=== PATIENT | female | born 1990 | race Caucasian/White ===

== ENCOUNTER 2021-08-07 10:00 | Emergency (ER) | payer BC, MEDICAID, SELFPAY ==
[2021-08-07 10:12] VITALS: BP 127/75; PULSE 94; RESP 16; TEMP 37.1; O2SAT 100
--- NOTE | 2021-08-07 10:36 | ED.URI ---
HPI - URI/Sore Throat General Chief Complaint: Upper Respiratory Infection Stated Complaint: sob Source: patient and RN notes reviewed Mode of arrival: ambulatory Limitations: no limitations History of Present Illness MD elicited complaint: cough and sore throat Related Data Home Medications Medication Instructions Recorded Confirmed amitriptyline 100 mg PO DAILY 08/07/21 08/07/21 Allergies Allergy/AdvReac Type Severity Reaction Status Date / Time amoxicillin Allergy Intermediate Hives / Verified 08/07/21 10:24 Red Face tramadol Allergy Intermediate Hives / Verified 08/07/21 10:24 Red Face Penicillins Allergy Mild HIVES, Verified 08/07/21 10:24 THROAT SWELLS Sulfa (Sulfonamide Allergy Mild ITCHING Verified 08/07/21 10:24 Antibiotics) Review of Systems Review of Systems: CONSTITUTIONAL: Denies malaise, chills, sweats, or fever. EYES: Denies visual changes, redness, or discharge. ENT: Reports rhinorrhea, congestion, sinus pain, otalgia and sore throat. CARDIOVASCULAR: Denies chest pain, palpitations, or edema. RESPIRATORY: Reports cough. Denies dyspnea. GASTROINTESTINAL: Denies abdominal pain, nausea, vomiting, diarrhea SKIN: Denies rash or itching. MUSCULOSKELETAL: Denies myalgia. NEUROLOGIC: Denies headache. All systems reviewed & are unremarkable except as noted in HPI and below PMFSH Comments At time of signature, agree with nursing past medical, surgical, social and family history. There is no relevant family history pertinent to the presenting complaint Exam Narrative: GENERAL: Well-appearing, well-nourished, and in no acute distress. HEAD: Normocephalic EYES: PERRLA, conjunctivae clear ENT: Nares clear, turbinates edematous and erythematous, clear discharge. Mucous membranes moist. TM pearly michaels with dull light reflex bilaterally; no tragal tenderness. Oropharynx not erythematous without lesions. Tonsils not enlarged and without exudate, no drooling, no hoarseness, no trismus, uvula midline. NECK: Supple. No lymphadenopathy CHEST: Clear to auscultation, breath sounds equal. No wheezing, rhonchi, rales, or stridor. No respiratory distress, speaks in full sentences. HEART: Regular rate and rhythm. No murmur heard. SKIN: Warm, dry, no rash. NEURO: Alert and oriented x3. PSYCH: Normal mood and affect Course Course Emergency Course: Patient is aware of diagnosis, understands and agrees to treatment plan. Anticipatory guidance given. Patient agrees to follow-up as directed and is aware of reasons to seek care at the emergency department. Portions of this record may have been created with voice recognition software Level of Care: Express Care Visit Vital Signs Vital signs: Vital Signs Temperature 98.8 F 08/07/21 10:12 Pulse Rate 94 08/07/21 10:12 Respiratory Rate 16 08/07/21 10:12 Blood Pressure 127/75 08/07/21 10:12 Pulse Oximetry 100 08/07/21 10:12 Temperature 98.8 F 08/07/21 10:12 Pulse Rate 94 08/07/21 10:12 Respiratory Rate 16 08/07/21 10:12 Blood Pressure 127/75 08/07/21 10:12 Pulse Oximetry 100 08/07/21 10:12 Reviewed. MDM - URI/Sore Throat MDM Narrative Medical decision making narrative: Differential diagnosis considered: Ching virus, strep pharyngitis, allergic rhinitis, upper respiratory tract infection, sinusitis, rhinosinusitis, nasopharyngitis. viral pharyngitis, otitis media, otitis externa, pneumonia, bronchitis, viral cough syndrome, viral syndrome, and influenza. Exam findings show no acute concerns or changes; patient is non-toxic appearing and is in no distress. Patient is appropriate for outpatient treatment and follow-up. Lab Data Attestation: I reviewed the patient's lab results. Critical Care Time Critical Care Time Critical Care Time: No Discharge Plan Discharge Clinical Impression: Bronchitis, COVID-19 virus infection Patient Disposition: Home, Self-Care Condition: Stable Instructions: Acute Bronch
== END 2021-08-07 11:10 | disposition home or self-care (01) ==
PROVIDERS: Emergency Provider Nurse Practitioner; PCP Family Medicine
DX: J40 Bronchitis, not specified as acute or chronic (principal); U07.1 COVID-19; Z90.711 Acquired absence of uterus with remaining cervical stump; F32.9 Major depressive disorder, single episode, unspecified
CPT/HCPCS: 99213; G0463

== ENCOUNTER 2022-03-15 00:29 | Day surgery (SDC) | payer OTHER, SELFPAY ==
[2022-03-09 13:58] VITALS: BMI 29.9
--- NOTE | 2022-03-09 14:26 | PC.NURSE ---
Report to the Outpatient Waiting Room, entrance under the green pavilion located off [facility], at 0600 on 03-15-22. OR Time: 0730 . - You and your visitor will be asked to self-screen and do not enter if you have any COVID symptoms. - Only one visitor and NO children visitors are allowed at this time. - The patient visitor is requested to leave or wait in car when not with patient due to restrictions. - A mask is required within the hospital. Patients may have clear liquids (water, carbonated beverages, clear teas, apple juice) until 3 hours prior to surgery with a maximum of 20 ounces. 0430 - No food from midnight until time of surgery - Infants may have breast milk until 4 hours before surgery, infant formula 6 hours prior to surgery. - Children will be allowed to drink immediately following surgery. If applicable, please bring a bottle or sippy cup to assist with drinking. Juice, water, soda, and popsicles are readily available. For infants on formula, please bring formula the day of surgery. Pacifiers are allowed. Take the following medications with a SIP of water the morning of surgery: None Medications to discontinue per physician: N/A Please no make-up, nail occitan, hairspray, perfume, deodorant, or body powder the day of surgery. No jewelry (including any body piercings) or valuables the day of surgery, leave them at home. Please take a shower or bath the night before, or the morning of, surgery with an antibacterial soap. Wear comfortable, loose fitting clothing. Children are encouraged to wear pajamas. - Jewelry must be removed prior to entering the operating room. Rings and piercings that are not removed may be cut off. - The hospital will not accept responsibility for valuables. - Please leave all valuables, including medications, at home the day of surgery. If you are going home after surgery, a licensed delivery driver/customer service must drive you home. - NO public transportation without another adult. - We recommend that an adult stay with you for 24 hours following discharge. - We also recommend that you do not drive, make important decision, drink alcoholic beverages, or take any drugs that were not prescribed by your health care provider for at least 24 hours after your discharge time. For Pediatric surgeries, we recommend two adults accompany the child home (only one inside the building at this time). Follow any additional instructions given to you from your surgeon. If you or anyone in your household have experienced Covid symptoms in the past week, please notify your surgeon or the nurse liaison at the phone number below for possible testing. Telephone instructions given to Xin Rodas and asked if any additional questions and then verbalized understanding. Patient advised to call surgeon office or pre surgery nurse liaison [phone] if any additional questions.
--- NOTE | 2022-03-10 15:11 | PM.IMHP ---
H&P: HPI History of Present Illness Date/Time: 03/10/22 15:11 Chief Complaint: the patient is a 32-year-old female who presents with right knee pain chronic and ongoing in nature. Patient denies any specific trauma or injury. A lot of the patient's pain is anterior knee pain she does have some patellofemoral irritability, patient has been treated with therapy cortisone and anti-inflammatories without significant relief. She reports aching pain squatting kneeling going up and down stairs twisting or turning on the knee causes significant symptoms as well. An MRI scan was performed that shows a lateral meniscus to be intact. The medial meniscus shows degenerative noncommunicating hyperintense signal within the body and posterior horn. Stabilizing ligaments are intact. The report is read as no significant lateral patellar subluxation there is some moderate medial compartment thinning of the articular cartilage. . Despite conservative measures symptoms continue. At times it feels tight and swollen, if she sits too long with her knee bent she has aching pain in the anterior knee. She is limited in her daily activities she has discussed further treatment options in detail Dr. Carter the patient would now like to proceed with knee arthroscopy. Review of Systems Review of Systems: Ten point review of systems otherwise negative. [facility] Social History Social History Years smoked: 6 Smoking status: Former smoker Tobacco type: cigarettes Second hand tobacco smoke exposure: Yes (spouse smokes) Smoking end date: 07/23/14 Alcohol intake: current Alcohol use details: occasionally, not often Substance use: never Substance use type: does not use Living arrangements: with family Spiritual care concerns: No Meds Home Medications and Allergies Home Medications Medication Instructions Recorded Confirmed Type amitriptyline 100 mg tablet 100 mg PO HS 08/07/21 03/09/22 History clindamycin HCl 300 mg capsule 300 mg PO Q6H 03/09/22 03/09/22 History Allergies Allergy/AdvReac Type Severity Reaction Status Date / Time amoxicillin Allergy Intermediate Hives / Verified 03/09/22 13:48 Red Face tramadol Allergy Intermediate Hives / Verified 03/09/22 13:48 Red Face Penicillins Allergy Mild HIVES, Verified 03/09/22 13:48 THROAT SWELLS Sulfa (Sulfonamide Allergy Mild ITCHING Verified 03/09/22 13:48 Antibiotics) Exam Narrative: On exam the patient is noted be well-developed well-nourished female no acute distress alert oriented x3. Normal mood and affect. Patient is 5 ft 5 in tall 180 lb. BMI is 30. Hearing and vision are intact. Respiratory is good no distress. Pulse regular rate, rhythm. Abdomen benign. Extremities showed the patient's right knee to be painful with manipulation range of motion. She has a positive patellofemoral compression test mild subpatellar crepitation through the arc of motion. Patient has pain and tenderness on the medial joint line posterior medially. No evidence of a Harding cyst no significant effusion or swelling. Range of motion is well maintained has pain with extremes of motion. Ann maneuver is positive with significant reproduction of posterior old medial knee pain. Negative Karl no varus or valgus instability. Strength is 5 5 knee joint is otherwise stable neurovascularly she is intact. Skin is intact. Central nervous system within normal limits. Assessment and Plan Assessment and plan (1) Tear of medial meniscus of right knee: Code(s): S83.241A - Other tear of medial meniscus, current injury, right knee, initial encounter Status: Acute (2) Patellofemoral pain syndrome of right knee: Code(s): M22.2X1 - Patellofemoral disorders, right knee Status: Acute Plan By history and exam the patient is noted to have a likely medial meniscal tear of the right knee and patell
--- NOTE | 2022-03-14 11:57 | P.PNAN_ITS ---
Anes - Initial Pre Proc Eval Procedure: Operation Date: 03/15/22 09:00 Proposed Procedures p Right Knee Arthroscopy, Debridement, Possible Lateral Retinacular Release, Proceed as Indicated - Edwin Carter MD Date/Time: 03/14/22 11:57 Surgeon: Edwin Carter MD Pre Op Diagnosis: patellofemoral pain, internal derangement rt knee Patient Data Age: 32 Gender: F Height: 1.65 m Weight: 81.65 kg Allergies Allergy/AdvReac Type Severity Reaction Status Date / Time amoxicillin Allergy Intermediate Hives / Verified 03/15/22 07:14 Red Face tramadol Allergy Intermediate Hives / Verified 03/15/22 07:14 Red Face Penicillins Allergy Mild HIVES, Verified 03/15/22 07:14 THROAT SWELLS Sulfa (Sulfonamide Allergy Mild ITCHING Verified 03/15/22 07:14 Antibiotics) Home Medications Medication Instructions Recorded Confirmed Type amitriptyline 100 mg tablet 100 mg PO HS 08/07/21 03/15/22 History Patient hx anesthesia problems: none Family hx anesthesia problems: none Results Review: All pre-operative results and documents have been reviewed as part of the pre- operative evaluation. [facility] Past Medical History Medical History (Updated 03/14/22 @ 11:59 by Kain Linder MD) Anxiety Bipolar 1 disorder Depression PONV (postoperative nausea and vomiting) Social History Social History Years smoked: 6 Smoking status: Former smoker Tobacco type: cigarettes Second hand tobacco smoke exposure: Yes (spouse smokes) Smoking end date: 07/23/14 Alcohol intake: current Alcohol use details: occasionally, not often Substance use: never Substance use type: does not use Living arrangements: with family Spiritual care concerns: No Anes - Eval Final PreProcedure Day of Procedure 03/14/22 11:57 Patient weight: overweight Heart: regular rate and rhythm Lungs: clear to auscultation and normal air movement Airway: Mallampati scale class II Neurological: alert and oriented Last oral intake: >/= 8 hours ASA classification: II Emergent: no Anesthetic plan: proceed Anesthesia type and monitoring: general LMA Results Review: All pre-operative results and documents have been reviewed as part of the pre- operative evaluation. Informed Consent: The patient's anesthetic plan and its attendant risks and benefits were discussed with the patient/family/POA. Questions were solicited and answers provided to the satisfaction of the patient/family/POA.
[2022-03-15] VITALS (9 sets, daily range): BP systolic 111–122; BP diastolic 64–79; PULSE 79–101; RESP 12–22; TEMP 36.3–36.4; O2SAT 97–100
--- NOTE | 2022-03-15 07:11 | WPDHPUPDATE1 ---
History and Physical Update Update Date/Time: 03/15/22 07:11 History and Physical has been reviewed, including an updated exam of the patient. There are NO changes in the patient's condition. Risks, benefits, and alternatives have been discussed and questions answered. Patient agrees to proceed with procedure.
[2022-03-15] MEDS: LACTATED RINGERS 1,000 ML 30 ML IV CONT (07:41)
[2022-03-15] MEDS: ACETAMINOPHEN 500 MG TABLET 1000 MG PO (07:41)
[2022-03-15] MEDS: KETOROLAC 15 MG/ML VIAL (*BKC) IV PUSH (07:43)
[2022-03-15] MEDS: SCOPOLAMINE 1.5 MG PATCH TRANSDERM (08:10)
[2022-03-15] MEDS: ceFAZolin 2 GM/D5W 50 ML 2 GM/50 ML BAG IVPB (08:37)
[2022-03-15] MEDS: LIDO 1%/EPINEPHRINE 1:100,000 50 ML VIAL 30 ML INFILTRATE (09:04)
--- NOTE | 2022-03-15 09:25 | P.OP_ITS ---
Procedure Note - Detailed Date of Procedure 03/15/22 Pre-op Diagnosis patellofemoral pain, internal derangement rt knee Post-op Diagnosis Same Procedure Performed Arthroscopy partial medial meniscectomy lateral retinacular release Surgeon Edwin Carter MD Anesthesia General Description of Procedure Patient brought to the operating room and anesthetic was administered. The knee was steriley prepped and drapped in the usual manner. Standard portals were used. Superior medial portal was used for the outflow cannula, inferior lateral portal was used for the scope, inferior medial portal was used for the instruments. Arthroscopy was performed, the patellar femoral joint showed degenerative changes and significant patellar tilt laterally. The medial compartment showed small fraying and tearing, with significant chondromalacia medial femoral. The lateral compartment showed fraying. The ACL was intact. Using baskets and madelin the meniscal tear was trimmed back to a stable base so the nothing further could be pulled into the joint. Any loose or delaminated fragments were gently trimmed to a stable base. I then addressed the lateral tilted patella she rode laterally both the flexion extension accessory portal made lateral 15 blade was introduced and cut proximally and distally at this po int I did note fell least 60? patella seemed to track position. At this point the instruments were withdrawn, sutures placed and patient left the operating room in satisfactory condition. Estimated Blood Loss 20 Drains No Packing No Pathology None sent Complications No immediate complications Condition Stable Disposition PACU
[2022-03-15] MEDS: fentaNYL CITRATE INJ (*CRX) 100 MCG/2 ML VIAL 25 MCG IV PUSH ×4 (09:53→10:00)
[2022-03-15] MEDS: ONDANSETRON INJ 4 MG/2 ML VIAL IV PUSH (10:22)
[2022-03-15] MEDS: oxyCODONE HCL (*CRX) 5 MG TAB IR PO (11:07)
--- NOTE | 2022-03-15 11:13 | SUR.PHASEII ---
DR. WATERMAN CALLED TO ASK HIM WHAT THE PATIENT'S ACTIVITY LEVEL SHOULD BE POST-OPERATIVELY. HE INSTRUCTED WEIGHT-BEARING TOLERATED. MY USE CRUTCHES NEEDED.
--- NOTE | 2022-03-15 11:23 | SUR.PHASEII ---
CRUTCHES ORDERED; GIVEN TO PATIENT. PATIENT STATES SHE KNOWS HOW TO USE THEM.
== END 2022-03-15 11:52 | disposition home or self-care (01) ==
PROVIDERS: PCP Family Medicine; Visit Provider Orthopaedic Surgery
PROC: (CPT 29870; principal; 2022-03-15 09:00)
DX: S83.241A Other tear of medial meniscus, current injury, right knee, initial encounter (principal); M22.2X1 Patellofemoral disorders, right knee; M22.41 Chondromalacia patellae, right knee; M25.561 Pain in right knee; G89.29 Other chronic pain; Z87.891 Personal history of nicotine dependence
CPT/HCPCS: 29881; 29873; A9270; J0690; J1170; J1885; J2250; J2405; J2704; J3010; J7120

== ENCOUNTER 2024-06-30 13:01 | Outpatient (CLI) | payer OTHER, SELFPAY ==
--- NOTE | ~2024-06-30 | CT_ITS ---
CT abdomen pelvis w con Ordering provider: Jocelyn BaANDRES History: 34 years Female with . RLQ pain . Comparison: June 24, 2015 Technique: CT abdomen and pelvis with IV and without oral contrast. Automated exposure control and it erative reconstruction technique were employed. The dose-length product was 393.09 mGy-cm. 100 mL Omn ipaque 350 was given IV. Findings: VISUALIZED LOWER CHEST: Normal. UPPER ABDOMINAL ORGANS: Liver: Normal. Gallbladder: Contracted Spleen: Normal. Stomach/duodenum: Normal. Pancreas: Normal. Adrenals: Normal. Kidneys: Normal. PELVIC ORGANS: The bladder is normal. BOWEL AND MESENTERY: Colon: No evidence of diverticulitis. Fecal material seen in the right side of the colon. Normal appe ndix. Small Bowel: Normal. No obstruction. Peritoneum/mesentery: No free air or free fluid. No mesenteric lymphadenopathy. RETROPERITONEUM: Mild atheromatous disease of the abdominal aorta. iliac lymph nodes or may be the o varies are noted measuring 2.3 cm 1.6 cm on the left and the Right measuring 2.5 cm. Slight narrowing at the origin of the celiac artery. No retroperitoneal lymphadenopathy. MUSCULOSKELETAL: Superficial soft tissues: The superficial soft tissues are normal. Bones: Normal spine. IMPRESSION: 1. No evidence of appendicitis, diverticulitis or intestinal obstruction. 2. Constipation. Reviewed, dictated and finalized at location A. E OPERATOR
--- NOTE | ~2024-06-30 | XR_ITS ---
XR chest 2V Ordering provider: Jocelyn Ba, ANDRES History: 34 years Female with . RLQ Pain . Comparison: May 13, 2011 FINDINGS: MEDIASTINUM: The cardiac silhouette is not enlarged. LUNGS: No infiltrates, effusions or pneumothorax. OTHER: No free air under the diaphragm. IMPRESSION: No acute cardiopulmonary pathology. Reviewed, dictated and finalized at location A. UTER NETWORK ENGINEER
== END 2024-06-30 13:02 | disposition home or self-care (01) ==
PROVIDERS: PCP Physician Assistant; Visit Provider Physician Assistant
DX: K59.00 Constipation, unspecified (principal); R61 Generalized hyperhidrosis
CPT/HCPCS: 71046; 74177; Q9967

== ENCOUNTER 2024-07-31 15:29 | Outpatient (CLI) | payer OTHER, SELFPAY ==
--- NOTE | ~2024-07-31 | US_ITS ---
EXAMINATION: US pelvic complete w TV INDICATION: Right-sided pelvic pain and swelling Comparison:No prior studies for comparison. TECHNIQUE: Multiple transabdominal and endovaginal sonographic images of the pelvis performed. FINDINGS: The uterus is surgically absent. The left ovary is not visualized. The right ovary is unremarkable measuring 2.1 x 1.5 x 1.8 cm. There is normal Doppler signal in the r ight ovary with follicular changes. There is no free fluid in the pelvis. There are no abnormal masses seen on either side. IMPRESSION: 1. Unremarkable pelvic ultrasound status post hysterectomy. Reviewed, dictated and finalized at location B. TMENT COORDINATOR
== END 2024-07-31 15:30 | disposition home or self-care (01) ==
LOC: ANHIMG 15:31
PROVIDERS: PCP Physician Assistant; Visit Provider Physician Assistant
DX: R19.09 Other intra-abdominal and pelvic swelling, mass and lump (principal); Z90.710 Acquired absence of both cervix and uterus
CPT/HCPCS: 76830; 76856

== ENCOUNTER 2024-09-07 15:59 | Emergency (ER) | payer OTHER, SELFPAY ==
[2024-09-07 16:07] VITALS: BP 126/75; PULSE 82; RESP 16; TEMP 36.7; O2SAT 99
[2024-09-07] MEDS: TETANUS,DIPHTHERIA,AC PERTUSSIS ADULT (0.5 ML) BOOSTRIX IM (16:35)
--- NOTE | 2024-09-07 16:39 | ED.WOUNDLAC ---
HPI - Wound/Laceration General Chief Complaint: Wound/Laceration Stated Complaint: Left Hand Laceration Time Seen by Provider: 09/07/24 16:40 Source: patient and RN notes reviewed Mode of arrival: ambulatory Limitations: no limitations History of Present Illness HPI narrative: 34-year-old female presents concern for laceration to her left and. Reports she was washing dishes when she lacerated the hand. She reports she is not up-to-date on her tetanus vaccination. She denies decreased strength, sensation, range of motion of the digit Related Data Home Medications ?Medication ?Instructions ?Recorded ?Confirmed ?Last Taken ?Type No Home Medications 09/07/24 09/07/24 Unknown History Allergies Allergy/AdvReac Type Severity Reaction Status Date / Time amoxicillin Allergy Intermediate Hives / Verified 10/30/23 14:14 Red Face tramadol Allergy Intermediate Hives / Verified 10/30/23 14:14 Red Face Penicillins Allergy Mild HIVES, Verified 10/30/23 14:14 THROAT SWELLS Sulfa (Sulfonamide Allergy Mild ITCHING Verified 10/30/23 14:14 Antibiotics) Review of Systems Review of Systems: CONSTITUTIONAL: Denies malaise, chills, sweats, or fever. SKIN: Reports laceration to the left hand MUSCULOSKELETAL: Denies muscle skeletal pain NEUROLOGIC: Denies numbness, weakness All systems reviewed & are unremarkable except as noted in HPI and below PMFSH Past Medical History Medical History Anxiety Bipolar 1 disorder Depression PONV (postoperative nausea and vomiting) Vaginal discharge Surgical History Surgical History H/O LEEP H/O ovarian cystectomy x 2 H/O tubal ligation H/O: hysterectomy Hx of knee surgery Family History Family History Mother Hypertension Father Diabetes mellitus Social History Social History Years smoked: 6 Smoking status: Former smoker Tobacco type: cigarettes Second hand tobacco smoke exposure: Yes (spouse smokes) Smoking end date: 07/23/14 Alcohol intake: current Alcohol use details: occasionally, not often Substance use: never Substance use type: does not use Living arrangements: with family Occupation/Education: occupation Gender identity (if verbalized by the patient): Female Sexual Orientation (if Verbalized by the Patient): Straight or Heterosexual Spiritual care concerns: No Comments At time of signature, agree with nursing past medical, surgical, social and family history. There is no relevant family history pertinent to the presenting complaint Exam Narrative: GENERAL: Well-appearing, well-nourished, and in no acute distress. HEAD: Normocephalic EYES: PERRLA, conjunctivae clear NECK: Supple. CHEST: Speaks in full sentences. No respiratory distress. HEART: Regular rate and rhythm. Normal and equal peripheral pulses. EXTREMITIES: Left hand and digits of hand have normal strength and sensation. 5/5 strength with digit flexion, extension. Range of motion normal. No clubbing, cyanosis, or edema noted. Normal digital cascade with flexion of fingers, median, ulnar and radial nerve intact. Good capillary refill and radial pulse. Distal capillary refill less than 3 seconds. Patient is left hand dominant SKIN: Warn, dry, intact, pink. No rash. Laceration noted to the dorsal aspect of the left hand NEURO: Alert and oriented x3. PSYCH: Normal mood and affect Extrem: Hand/finger images:  1. 1.5 cm linear laceration through the subcutaneous tissue. Not gaping, no active bleeding, edges well-approximated Course Course Emergency Course: Patient is aware of diagnosis, understands and agrees to treatment plan. Anticipatory guidance given. Patient agrees to follow-up as directed and is aware of reasons to seek care at the emergency department. Portions of this record may have been created with voice recognition software Level of Care: Express Care Visit Vital Signs Vital signs: Vital Signs Temperature 98.0 F 09/07/24 16:07 Pulse Rate 82 09/07/24 16:07 Respiratory Rate 16 09/07/24 16:07 Blood Pressure 126/75 09/07/24 16:07 Pulse Oximetry 99 09/07/24 16:07 Oxygen Delivery Room Air 09/07/24 16:07 Temperature 98.0 F 09/07/24 16:07 Pulse Rate 82 09/07/24 16:07 Respiratory Rate 16 09/07/24 16:07 Blood Pressure 126/75 09/07/24 16:07 Pulse Oximetry 99 09/07/24 16:07 Oxygen Delivery Room Air 09/07/24 16:07 Reviewed. Procedures Laceration Laceration 1: Date: 09/07/24 Time: 16:45 Side (If applicable): left Size (cm): 1.5 Description: linear Depth: simple, single layer Pre-repair: wound explored and irrigated ====== Skin Level ====== Skin layer closed with: dermabond ====== Subcutaneous Layer ====== ====== Muscle Layer ====== ====== Tendon Layer ====== MDM - Wound/Laceration MDM Narrative Medical decision making narrative: Wound explored for foreign body and copious irrigation provided with no evidence of FB. The wound was explored and no foreign bodies were found. There was no evidence of tendon or nerve lacerations. Anticipatory guidance was provided. Tetanus prophylaxis was given Differential Diagnosis Differential diagnosis: Likely laceration, abrasion and avulsion of skin Critical Care Time Critical Care Time Critical Care Time: No Discharge Plan Discharge Clinical Impression: Laceration Patient Disposition: Home, Self-Care Condition: Stable Instructions: Laceration (ED) Additional Instructions: Skin adhesive care: -adhesive works like a bandage; do not use antibiotic ointment as it can break down the adhesive -You can shower while the adhesive is on your skin, but do not take a bath or soak or scrub the area for 7-10 days. Dry your skin by patting it gently with a towel. -The adhesive will peel off on its own; usually by 5-10days. If after 10 days, you still have adhesive on you, you can use antibiotic ointment or petroleum jelly to get it off. After you heal, you should protect the scar from the sun. Use sunscreen on the area or wear clothes or a hat that covers the scar. Follow up with your PCP as needed If you have any worsening of symptoms, redness, swelling, fever, or drainage, or any other concerns please follow up with your PCP or go to the ED immediately. Patient Language: [place] Prescriptions: No Action No Home Medications Follow-up/Referrals: Jesenia,ANDRES Banks [Primary Care Provider] - Time of Disposition: 16:57
== END 2024-09-07 17:25 | disposition home or self-care (01) ==
PROVIDERS: Emergency Provider Nurse Practitioner; PCP Physician Assistant
DX: S61.412A Laceration without foreign body of left hand, initial encounter (principal); X58.XXXA Exposure to other specified factors, initial encounter; Y93.G1 Activity, food preparation and clean up; Z23 Encounter for immunization; Z87.891 Personal history of nicotine dependence
CPT/HCPCS: 12001; 90471; 90715; 99212; G0463

== ENCOUNTER 2025-06-15 06:36 | Outpatient (CLI) | payer BC, SELFPAY ==
--- OUTSIDE RECORDS SUMMARY | 2025-06-15 06:41 | XMS_ITS | Clinical Summary ---
Author Organization [facility] Address [address] [place] [id number] Care Team Providers Care Webbing [employer] Name Role Phone Unavailable Primary Care Provider Unavailabl e Social History Tobacco Use Types Packs/Day Years Used Date Smoking Tobacco: Never Assessed Comments Unknown Sex and Gender Information Value Date Recorded Sex Assigned at Not on file Legal Sex Female 8:32 PM CDT Gender Identity Not on file Sexual Orientation Not on file Last Filed Vital Signs Vital Sign Reading Time Taken Comments Blood Pressure 108/58 10/19/2016 12:58 PM CDT Pulse 92 10/19/2016 12:58 PM CDT Temperature - - Respiratory Rate - - Oxygen Saturation - - Inhaled Oxygen Concentration - - Weight 65.8 kg (145 lb) 10/19/2016 12:58 PM CDT Height 165.1 cm (5' 5) 10/19/2016 12:58 PM CDT Body Mass Index 24.13 10/19/2016 12:58 PM CDT Plan of Treatment Health Maintenance Due Date Last Done Comments Cervical Cancer Screening Pa p Smear (Age 30 to 64) Every 3 Years 1990 Annual Physical 1993 Hepatitis C 02/13/2008 DTaP, Tdap and Td Vaccines ( 1 - Tdap) 2009 Hepatitis B Vaccines (1 of 3 - 19+ 3-dose series) 2009 HPV Vaccines (1 - 3-dose SCD M series) 2017 Cervical Cancer Screening Pa p with HPV Testing (Age 30 to 64) Every 5 Years 02/13/2020 Cervical Cancer Screening with HPV 02/13/2020 COVID-19 Vaccine (2024-2 6 season) 2025 Influenza Adult (#1) 2025 Hepatitis A Vaccines Aged Out No long er eligible based on patient's age to complete this topic Meningococcal B Vaccine Aged Out No l onger eligible based on patient's age to complete this topic Meningococcal Vaccine Aged Out No mely armani eligible based on patient's age to complete this topic Pneumococcal Vaccine: Pediat rics (0 to 5 Years) and At-Risk Patients (6 to 49 Years) Aged Out No longer eligible b ased on patient's age to complete this topic RSV Immunizations Under 20 Months Aged Out No longer eligible based on patient's age to complete this topic
--- OUTSIDE RECORDS SUMMARY | 2025-06-15 06:41 | XMS_ITS | Data Portability ---
Author Organization Jaime FLORES Address [address] [facility] [place] [address] Care Team Providers Care Mixing Supervisor Name Role Phone REBECCAEMANUEL NETTA Primary Care Provider Unavailab le Assessment No assessment recorded. Plan of Treatment Reminders Order Date Submit Date Provider Last Modified By Organization Details Last Modified Time Details Appointments None recorded. Lab ferritin, serum or plasma 2023 024 FABIAN BERNSTEIN, [facility], [facility] [address], [place], [address], 4 07:09:24 magnesium, serum or plasma 2023 024 FABIAN BERNSTEIN, [facility], [address], [place], [address], 4 07:09:22 iron + total iron-bindin g capacity (TIBC), serum 2023 024 FABIAN BERNSTEIN, [address] [place] [address], [address], [place], [address], 4 07:09:20 CMP, serum or plasma 2023 024 [facility], [address], [place], [address], 4 07:09:18 cobalamin and folate panel, serum 2023 024 FABIAN BERNSTEIN Jessica Verma, [address], [place], [address], 4 07:09:19 lipid panel, serum 2023 024 FABIAN ENGLANDRP, Jessica Verma, [address], [place], [address], 4 07:09:16 CBC w/ auto diff 2023 024 FABIAN ENGLANDRP, Jessica Verma, [address], [place], [address], 4 07:09:25 TSH + free T4, serum 2023 024 FABIAN BERNSTEIN, Jessica Verma, [address], [place], [address], 4 07:09:17 lh + FSH, serum 2023 024 FABIAN BERNSTEIN, Jessica Verma, [address], [place], [address], 4 07:09:26 estradiol, serum 2023 024 FABIAN BERNSTEIN, Jessica Verma, [address], [place], [address], 4 07:09:23 progesteron e, serum 2023 024 FABIAN BERNSTEIN, Jessica Verma, [address], [place], [address], 4 07:09:22 HbA1c (hemoglobin A1c), blood 2023 024 FABIAN BERNSTEIN, Jessica Verma, [address], [place], [address], 07:09:21 Referral None recorded. Procedures None recorded. Surgeries None recorded. Imaging CT, abdomen + pelvis, w/ contrast - Hold and call 2023 024 [facility] (Imaging), [address] [place] [address], [address], 15:34:14 XR, chest, 2 view [address] (Imaging), [address] [place] [address] [address], [place], [address], 11:08:51 Medication Orders ropinirole 0.5 mg tablet 2023 024 [facility] #[id number], [address], [place], [address], 12:49:58 Patient TargetsNo targets recorded. Patient Instructions Encounter Date Encounter Id Patient Instructions Last Modified By Organization Details Last Modified Time 06/30/2024 [id number] A healthy lifestyle: care instructions [email or web address] Not available 06/30/2024 12:49:55 Reason for Referral None Reported. Results Created Date Observation Date Name Description Value Unit Range Abnormal Flag Note LastModifiedBy Organization Detail LastModifiedTime 07/02/2007/03/2024 LIPID PANEL W/ CHOL/ HDL RATIO cholesterol, total 177 mg/dL 100-19 9 Not Available [facility] ([facility]) [address] [facility], [place], [address], 07/03/2024 07:09:16 07/02/20 24 07/03/2024 LIPID PANEL W/ CHOL/ HDL RATIO triglyceride s 52 mg/dL 0-149 Not Available [facility] ([facility]) [address] [facility], [place], [address], 07/03/2024 07:09:16 07/02/20 24 07/03/2024 LIPID PANEL W/ CHOL/ HDL RATIO HDL cholesterol 55 mg/dL >39 Not Available [facility] ([facility]) [address] [place], [address], 07/03/2024 07:09:16 07/02/20 24 07/03/2024 LIPID PANEL W/ CHOL/ HDL RATIO VLDL cholesterol daniel 10 mg/dL 5-40 Not Available [facility] ([facility]) [address] [facility] [place], [address], 07/03/2024 07:09:16 07/02/20 24 07/03/2024 LIPID PANEL W/ CHOL/ HDL RATIO LDL chol calc ([facility]) 112 mg/dL 0-99 above high normal Not Available [facility] ([facility]) [address] [place], [address], 07/03/2024 07:09:16 07/02/20 24 07/03/2024 LIPID PANEL W/ CHOL/ HDL RATIO T. chol/HDL ratio 3.2 ratio 0.0-4. 4 T. Chol/ HDL Ratio Men Women 1/2 Avg.R isk 3.4 3.3 Avg.R isk 5.0 4.4 2X Avg.R isk 9.6 7.1 3X Avg.R isk 23.4 11.0 Not Available [facility] ([facility]) [address] [place], [address], 07/03/2024 07:09:16 07/02/20 24 07/03/2024 TSH+F REE T4 TSH 1.460 uIU/m L 0.450- 4.500 Not Available [facility] ([facility]) [address] [place], [address], 07/03/2024 07:09:17 07/02/20 24 07/03/2024 TSH+F REE T4 T4,free(dire ct) 1.09 NG/dL 0.82-1 .77 Not Available [facility] ([facility]) [address] [place], [address], 07/03/2024 07:09:17 07/02/20 24 07/03/2024 COMP. METAB OLIC PANEL (14) glucose 98 mg/dL 70-99 Not Available [facility] ([facility]) [address] [place], [address], 07/03/2024 07:09:18 07/02/20 24 07/03/2024 COMP. METAB OLIC PANEL (14) BUN 18 mg/dL 6-20 Not Available [facility] ([facility]) [address] [facility], [place], [address], 07/03/2024 07:09:18 07/02/20 24 07/03/2024 COMP. METAB OLIC PANEL (14) creatinine 0.86 mg/dL 0.57-1 .00 Not Available [facility] ([facility]) [address] [place], [address], 07/03/2024 07:09:18 07/02/20 24 07/03/2024 COMP. METAB OLIC PANEL (14) eGFR 91 mL/mi n/1.7 3 >59 Not Available [facility] ([facility]) [address] [place], [address], 07/03/2024 07:09:18 07/02/20 24 07/03/2024 COMP. METAB OLIC PANEL (14) BUN/creatini ne ratio 21 9-23 Not Available [facility] ([facility]) [address] [place], [address], 07/03/2024 07:09:18 07/02/20 24 07/03/2024 COMP. METAB OLIC PANEL (14) sodium 139 mmol/ L 134-14 4 Not Available [facility] ([facility]) [address] [place], [address], 07/03/2024 07:09:18 07/02/20 24 07/03/2024 COMP. METAB OLIC PANEL (14) potassium 4.7 mmol/ L 3.5-5. 2 Not Available [facility] ([facility]) [address] [place], [address], 07/03/2024 07:09:18 07/02/20 24 07/03/2024 COMP. METAB OLIC PANEL (14) chloride 104 mmol/ L 96-106 Not Available [facility] ([facility]) [address] [place], [address], 07/03/2024 07:09:18 07/02/20 24 07/03/2024 COMP. METAB OLIC PANEL (14) carbon dioxide, total 24 mmol/ L 20-29 Not Available [facility] ([facility]) [address] [place], [address], 07/03/2024 07:09:18 07/02/20 24 07/03/2024 COMP. METAB OLIC PANEL (14) calcium 9.2 mg/dL 8.7-10 .2 Not Available [facility] ([facility]) [address] [place], [address], 07/03/2024 07:09:18 07/02/20 24 07/03/2024 COMP. METAB OLIC PANEL (14) protein, total 6.4 g/dL 6.0-8. 5 Not Available [facility] ([facility]) [address] [place], [address], 07/03/2024 07:09:18 07/02/20 24 07/03/2024 COMP. METAB OLIC PANEL (14) albumin 4.2 g/dL 3.9-4. 9 Not Available [facility] ([facility]) [address] [place], [address], 07/03/2024 07:09:18 07/02/20 24 07/03/2024 COMP. METAB OLIC PANEL (14) globulin, total 2.2 g/dL 1.5-4. 5 Not Available [facility] ([facility]) [address] [place], [address], 07/03/2024 07:09:18 07/02/20 24 07/03/2024 COMP. METAB OLIC PANEL (14) bilirubin, total 0.3 mg/dL 0.0-1. 2 Not Available [facility] ([facility]) [address] [place], [address], 07/03/2024 07:09:18 07/02/20 24 07/03/2024 COMP. METAB OLIC PANEL (14) alkaline phosphatase 76 IU/L 44-121 Not Available [facility] ([facility]) [address] [place], [address], 07/03/2024 07:09:18 07/02/20 24 07/03/2024 COMP. METAB OLIC PANEL (14) AST (SGOT) 17 IU/L 0-40 Not Available [facility] ([facility]) [address] [facility] [place], [address], 07/03/2024 07:09:18 07/02/20 24 07/03/2024 COMP. METAB OLIC PANEL (14) ALT (SGPT) 13 IU/L 0-32 Not Available [facility] ([facility]) [address] [facility] [place], [address], 07/03/2024 07:09:18 07/02/20 24 07/03/2024 VITAM IN B12 AND FOLAT E vitamin B12 413 pg/mL 232-12 45 Not Available [facility] ([facility]) [address] [facility] [place], [address], 07/03/2024 07:09:19 07/02/20 24 07/03/2024 VITAM IN B12 AND FOLAT E folate (folic acid), serum 9.1 NG/mL >3.0 A serum folat e kathryn ntrat ion of less than 3.1 ng/mL is consi dered to repre sent clini daniel defic iency . Not Available [facility] ([facility]) [address] [place], [address], 07/03/2024 07:09:19 07/02/20 24 07/03/2024 IRON AND TIBC iron bind.cap.(TI BC) 344 ug/dL 250-45 0 Not Available [facility] ([facility]) [address] [place], [address], 07/03/2024 07:09:20 07/02/20 24 07/03/2024 IRON AND TIBC UIBC 283 ug/dL 131-42 5 Not Available [facility] ([facility]) [address] [place], [address], 07/03/2024 07:09:20 07/02/20 24 07/03/2024 IRON AND TIBC iron 61 ug/dL 27-159 Not Available [facility] ([facility]) [address] [facility], [place], [address], 07/03/2024 07:09:20 07/02/20 24 07/03/2024 IRON AND TIBC iron saturation 18 % 15-55 Not Available [facility] ([facility]) [address] [place], [address], 07/03/2024 07:09:20 07/02/20 24 07/03/2024 HEMOG LOBIN A1C hemoglobin A1C 5.4 % 4.8-5. 6 Predi abete s: 5.7 - 6.4 Diabe ehsan: >6.4 Glyce xenia contr ol for adult s with diabe ehsan: <7.0 Not Available [facility] ([facility]) [address] [place], [address], 07/03/2024 07:09:21 07/02/20 24 07/03/2024 MAGNE SIUM magnesium 1.9 mg/dL 1.6-2. 3 Not Available [facility] ([facility]) [address] [place], [address], 07/03/2024 07:09:21 07/02/20 24 07/03/2024 PROGE STERO NE progesterone 0.2 NG/mL Folli cular phase 0.1 - 0.9 Lutea l phase 1.8 - 23.9 Ovula tion phase 0.1 - 12.0 Pregn ant First trime ster 11.0 - 44.3 Secon d trime ster 25.4 - 83.3 Third trime ster 58.7 - 214.0 Postm enopa usal 0.0 - 0.1 Not Available [facility] ([facility]) [address] [place], [address], 07/03/2024 07:09:22 07/02/20 24 07/03/2024 ESTRA DIOL estradiol 91.9 pg/mL Adult Femal e Range Folli cular phase 12.5 - 166.0 Ovula tion phase 85.8 - 498.0 Lutea l phase 43.8 - 211.0 Postm enopa usal <6.0 - 54.7 Pregn phan 1st trime ster 215.0 - >4300 .0 Anibal ECLIA metho dolog y Not Available [facility] ([facility]) [address] [place], [address], 07/03/2024 07:09:23 07/02/20 24 07/03/2024 SRAVANI TIN ferritin 99 NG/mL 15-150 Not Available [facility] ([facility]) [address] [place], [address], 07/03/2024 07:09:24 07/02/20 24 07/02/2024 CBC WITH DIFFE RENTI AL/PL ATELE T WBC 5.1 x10e3 /uL 3.4-10 .8 Not Available [facility] ([facility]) [address] [place], [address], 07/03/2024 07:09:25 07/02/20 24 07/02/2024 CBC WITH DIFFE RENTI AL/PL ATELE T RBC 5.00 x10e6 /uL 3.77-5 .28 Not Available [facility] ([facility]) [address] [facility], [place], [address], 07/03/2024 07:09:25 07/02/20 24 07/02/2024 CBC WITH DIFFE RENTI AL/PL ATELE T hemoglobin 14.3 g/dL 11.1-1 5.9 Not Available [facility] ([facility]) [address] [facility], [place], [address], 07/03/2024 07:09:25 07/02/20 24 07/02/2024 CBC WITH DIFFE RENTI AL/PL ATELE T hematocrit 43.4 % 34.0-4 6.6 Not Available [facility] ([facility]) [address] [facility], [place], [address], 07/03/2024 07:09:25 07/02/20 24 07/02/2024 CBC WITH DIFFE RENTI AL/PL ATELE T MCV 87 fL 79-97 Not Available [facility] ([facility]) [address] [facility], [place], [address], 07/03/2024 07:09:25 07/02/20 24 07/02/2024 CBC WITH DIFFE RENTI AL/PL ATELE T MCH 28.6 pg 26.6-3 3.0 Not Available [facility] ([facility]) [address] [facility], [place], [address], 07/03/2024 07:09:25 07/02/20 24 07/02/2024 CBC WITH DIFFE RENTI AL/PL ATELE T MCHC 32.9 g/dL 31.5-3 5.7 Not Available [facility] ([facility]) [address] [facility], [place], [address], 07/03/2024 07:09:25 07/02/20 24 07/02/2024 CBC WITH DIFFE RENTI AL/PL ATELE T RDW 12.5 % 11.7-1 5.4 Not Available [facility] ([facility]) [address] [facility], [place], [address], 07/03/2024 07:09:25 07/02/20 24 07/02/2024 CBC WITH DIFFE RENTI AL/PL ATELE T platelets 272 x10e3 /uL 150-45 0 Not Available [facility] ([facility]) [address] [facility], [place], [address], 07/03/2024 07:09:25 07/02/20 24 07/02/2024 CBC WITH DIFFE RENTI AL/PL ATELE T neutrophils 62 % notest ab. Not Available [facility] ([facility]) [address] [facility], [place], [address], 07/03/2024 07:09:25 07/02/20 24 07/02/2024 CBC WITH DIFFE RENTI AL/PL ATELE T lymphs 27 % notest ab. Not Available [facility] ([facility]) [address] [facility], [place], [address], 07/03/2024 07:09:25 07/02/20 24 07/02/2024 CBC WITH DIFFE RENTI AL/PL ATELE T monocytes 7 % notest ab. Not Available [facility] ([facility]) [address] [facility], [place], [address], 07/03/2024 07:09:25 07/02/20 24 07/02/2024 CBC WITH DIFFE RENTI AL/PL ATELE T eos 3 % notest ab. Not Available [facility] ([facility]) [address] [facility], [place], [address], 07/03/2024 07:09:25 07/02/20 24 07/02/2024 CBC WITH DIFFE RENTI AL/PL ATELE T basos 1 % notest ab. Not Available [facility] ([facility]) [address] [facility], [place], [address], 07/03/2024 07:09:25 07/02/20 24 07/02/2024 CBC WITH DIFFE RENTI AL/PL ATELE T neutrophils (absolute) 3.2 x10e3 /uL 1.4-7. 0 Not Available [facility] ([facility]) [address] [facility], [place], [address], 07/03/2024 07:09:25 07/02/20 24 07/02/2024 CBC WITH DIFFE RENTI AL/PL ATELE T lymphs (absolute) 1.4 x10e3 /uL 0.7-3. 1 Not Available [facility] ([facility]) [address] [facility], [place], [address], 07/03/2024 07:09:25 07/02/20 24 07/02/2024 CBC WITH DIFFE RENTI AL/PL ATELE T monocytes(ab solute) 0.3 x10e3 /uL 0.1-0. 9 Not Available [facility] ([facility]) [address] [facility], [place], [address], 07/03/2024 07:09:25 07/02/20 24 07/02/2024 CBC WITH DIFFE RENTI AL/PL ATELE T eos (absolute) 0.1 x10e3 /uL 0.0-0. 4 Not Available [facility] ([facility]) [address] [place], [address], 07/03/2024 07:09:25 07/02/20 24 07/02/2024 CBC WITH DIFFE RENTI AL/PL ATELE T baso (absolute) 0.1 x10e3 /uL 0.0-0. 2 Not Available [facility] ([facility]) [address] [facility], [place], [address], 07/03/2024 07:09:25 07/02/20 24 07/02/2024 CBC WITH DIFFE RENTI AL/PL ATELE T immature granulocytes 0 % notest ab. Not Available [facility] ([facility]) [address] [facility], [place], [address], 07/03/2024 07:09:25 07/02/20 24 07/02/2024 CBC WITH DIFFE RENTI AL/PL ATELE T immature grans (abs) 0.0 x10e3 /uL 0.0-0. 1 Not Available [facility] ([facility]) [address] [facility], [place], [address], 07/03/2024 07:09:25 07/02/20 24 07/03/2024 FSH AND LH LH 5.9 mIU/m L Adult Femal e Range Folli cular phase 2.4 - 12.6 Ovula tion phase 14.0 - 95.6 Lutea l phase 1.0 - 11.4 Postm enopa usal 7.7 - 58.5 Not Available [facility] ([facility]) [address] [facility], [place], [address], 07/03/2024 07:09:26 07/02/20 24 07/03/2024 FSH AND LH FSH 4.1 mIU/m L Adult Femal e Range Folli cular phase 3.5 - 12.5 Ovula tion phase 4.7 - 21.5 Lutea l phase 1.7 - 7.7 Postm enopa usal 25.8 - 134.8 Not Available [facility] ([facility]) [address] [facility], [place], [address], 07/03/2024 07:09:26 06/30/20 24 06/30/2024 CT, abdom en + pelvi s, w/ contr ast No observ ation record ed. [place] [address], [place], [address], 06/30/2024 16:37:03 06/30/20 24 06/30/2024 XR, chest , 2 view No observ ation record ed. [address], [place], [address], 06/30/2024 16:37:03 07/31/19 25 07/31/2024 US, pelvi s, trans abdom inal + trans vagin al No observ ation record ed. [facility] [address], [place], [address], 08/04/2024 15:15:23 Result Notes None recorded. Problems Name Problem SNOMED Code Status Onset Date Resolution Date Notes Provider Name and Address Organization Details Recorded Time Body mass index 25-29 - overweight 076724474 Active 2023 Alex Holly MA null, [place] - [facility] 4 12:06:53 History of hysterectom y 245381857 Active 2023 KEYON Mclaughlin Attn: Accountin g,[address] [facility], [place], [address], [place] - [facility] 4 12:27:54 Overweight 196292945 Active 2023 KEYON Mclaughlin Attn: Accountin g,[address] [facility], [place], [address], [place] [facility] 4 21:58:56 Restless legs syndrome 60712970 Active 2023 KEYON Mclaughlin Attn: Accountin g,[address] [facility], [place], [address], [place] [facility] 4 21:59:01 Chronic insomnia 841176447 Active 2023 KEYON Mclaughlin Attn: Accountin g,[address] [facility], [place], [address], [place] - [facility] 4 21:59:03 Long-term drug therapy Active 2023 KEYON Mclaughlin Attn: Accountin g,[address] [facility], [place], [address], [place] - [facility] 4 21:59:06 Positive screening for depression on PHQ-9 (Patient Health Questionnai re 9) 5609729726804 00 Active 2023 KEYON Mclaughlin Attn: Rhonda webb,[address] [facility], [place], [address], [facility] 22:02:25 Problem Notes None recorded. Procedures Surgical History Date Name Laterality Status Provider Name and Address Organization Details Recorded Time Arthroscopic Surgery completed Alex Holly MA [facility] 06/30/2024 12:43:26 Knee Surgery completed Alex Holly MA [facility] 06/30/2024 12:43:31 LEEP completed Alex Holly MA [facility] 06/30/2024 12:43:40 hysterectomy completed Alex Holly MA [facility] 06/30/2024 12:43:47 excision of bilateral fallopian tubes and ovaries completed Alex Holly MA [facility] 06/30/2024 12:43:53 Imaging Results None recorded. Procedure Notes None recorded. Medical Equipment None Reported. Allergies Allergen ID Allergen Name Allergen Category Reaction Reaction Severity Criticality Documentation Date Start Date Code Code System Note Provider Name and Address Organization Details Recorded Time 358308 amoxicill in medicatio n Not available Not available Not available 06/30/2024 723 RxNorm GARETH Morrissey [facility] 12:05:20 626876 Product containin g penicilli n (product) medicatio n Not available Not available Not available 06/30/2024 96580 8001 [facility] 12:42:51 423221 Substance with sulfonami de structure and antibacte rial mechanism of action (substanc e) medicatio n Not available Not available Not available 06/30/2024 38398 8003 [facility] 12:42:57 057094 tramadol medicatio n Not available Not available Not available 06/30/2024 77996 RxNorm GARETH Morrissey [facility] 12:43:04 Medications Name Sig Start Date Stop Date Status Note LastModified by Organization Details LastModified Time doxycycline hyclate 100 mg capsule TAKE 1 CAPSULE BY MOUTH TWICE A DAY WITH MEAL active Not Available Not Available No t Available amitriptyli ne 75 mg tablet 06/30 completed Not Available Not Available Not Available fluconazole 150 mg tablet TAKE 1 TABLET BY MOUTH EVERY DAY FOR 2 DAYS active Not Available Not Available No t Available sertraline 100 mg tablet 06/30 completed Not Available Not Available Not Available metronidazo le 500 mg tablet TAKE 1 TABLET BY MOUTH EVERY 12 HOURS active Not Available Not Available No t Available doxycycline monohydrate 100 mg capsule TAKE 1 CAPSULE BY MOUTH TWICE DAILY FOR 7 DAYS THIS DRUG MAY MAKE YOU SUNBURN MORE EASILY, USE CARE IF YOU WILL BE IN THE SUN 06/30 completed Not Available Not Available Not Available ropinirole 0.5 mg tablet TAKE 1 OR 2 TABLETS BY MOUTH EVERY DAY FOR RESTLESS LEGS. 2024 active Not Available Not Available Not Avai lable methylpredn isolone 4 mg tablets in a dose pack TAKE BY MOUTH DIRECTED ON INSIDE OF PACKAGE 06/30 completed Not Available Not Available Not Available sertraline 50 mg tablet 06/30 completed Not Available Not Available Not Available neomycin-po lymyxin-hyd rocort 3.5 mg-10,000 unit/mL-1 % ear drops,susp 06/30 completed Not Available Not Available Not Available Vitals Date Recorded Systolic And Diastolic Provider Name and Address Organization Details Last Updated DateTime 06/30/2024 130/80 mm[Hg] KEYON Mclaughlin Attn: Accounting,[address] [place], [address], [facility] 06/30/2024 12:49:37 Date Recorded Body weight Respiratory rate Body mass index (BMI) Body height Oxygen saturation Heart rate Systolic And Diastolic Provider Name and Address Organization Details Last Updated DateTime 4 03704.9 3 g 18 /min 27.8 kg/m2 165.1 cm 99 % 77 /min 118/82 mm[Hg] Alex Holly MA [place] - [facility] 4 12:08:42 Social History Question Answer Notes LastModified by Organizat ion Details LastModified Time Tobacco Smoking Status Former Smoker Alex Holly MA [facility], [place] - [facility] 06/30/2024 12:44:27 Do You Have An Advance Directive? No Information not available 06/30/2024 Are You Blind Or Do You Have Difficulty Seeing? No Information not available 06/30/2024 What Is Your Level Of Caffeine Consumption? Occasional Coffee Information not available 06/30/2024 In The 14 Days Before Symptom Onset, Have You Had Close Contact With A Laboratory-confir med COVID-19 While That Case Was Ill? No Information not available 06/30/2024 In The 14 Days Before Symptom Onset, Have You Had Close Contact With A Person Who Is Under Investigation For COVID-19 While That Person Was Ill? No Information not available 06/30/2024 Have You Been To An Area Known To Be High Risk For COVID-19? No Information not available 06/30/2024 Are You Deaf Or Do You Have Serious Difficulty Hearing? No Information not available 06/30/2024 What Type Of Diet Are You Following? REGULAR Information not available 06/30/2024 Are There Any Guns Present In Your Home? No Information not available 06/30/2024 What Was The Date Of Your Most Recent Tobacco Screening? 06/30/2024 Information not available 06/30/2024 What Is Your Current Pack Years? 10-19packyears Information not available 06/30/2024 What Is Your Relationship Status? Information not available 06/30/2024 Do You Use Your Seat Belt Or Car Seat Routinely? Yes Information not available 06/30/2024 Do You Have Smoke And Carbon Monoxide Detectors In Your Home? Yes Information not available 06/30/2024 How Much Tobacco Do You Smoke? No Information not available 06/30/2024 Do You Use Sunscreen Routinely? Yes Information not available 06/30/2024 Has Tobacco Cessation Counseling Been Provided? No Information not available 06/30/2024 Sex: Female Functional Status Question Answer Note LastModified by Organizat ion Details LastModified Time Do you use any illicit or recreational drugs? No Information not available 06/30/2024 Do you or have you ever used any other forms of tobacco or nicotine? No Information not available 06/30/2024 What is your level of alcohol consumption? Occasional Information not available 06/30/2024 Are you currently employed? No Information not available 06/30/2024 Are you able to care for yourself independently? Yes Information not available 06/30/2024 What is your exercise level? None Information not available 06/30/2024 Mental Status None recorded. Family History Relationship Description Onset Age of this Age Resolved Age Notes LastModified by Organization Details LastModified Time Father Diabetes mellitus tcarterma Not available 2023 12:44:05 Father Hypertensive disorder [email or web address] Not available 2023 12:44:11 Mother Hypercholest erolemia [email or web address] Not available 2023 12:44:16 Medical History Condition Response Coronary Artery Disease N Other N Atrial Fibrillation N High Blood Pressure N Thyroid Problems N Kidney or Bladder Problems N Depression N COPD N Blood Clots N GI Problems N Have you had a mammogram in the last yea r? N Skin Problems N Anemia N Heart Attack ([place]) N Diabetes N Anxiety Disorder Y Muscle, Joint, or Bone Problems N Seizures/Epilepsy N Have you had a colonoscopy in the last 1 0 years? N Acid Reflux (GERD) Y Cancer N Stroke N Allergies Y Asthma N Have you had a PSA blood test in the las t year? N High Cholesterol N Hepatitis N Liver Disease N Headaches N Osteoporosis N Heart Failure N Gynecological History Statement/Question Response Menses Monthly N Current Control Method Hysterectom y Obstetrics History GPAL:G 2 P 2 0 0 2 Type Value Full Term 2 Induced 0 Spontaneous 0 Premature 0 Living 2 Total 2 Past Encounters Encounter ID Performer Location Encounter Start Date Encounter Closed Date Diagnosis/Indication Diagnosis SNOMED-CT Code Diagnosis ICD10 Code Diagnosis IMO Codes Diagnosis Note [id number] Markell Salas MD [facility] Nikunj Montoya [address] [place] [address] 06/30/2024 11:39:12 06/30/2024 13:03:12 Body mass index 25-29 - overweight 874558030 Z68.27 BMI is 27.8 Overweight 259701518 E66 .3 discussed healthy diet, exercise, controllin g carbohydra ehsan and added sugars in the diet Cholesterol screening 27 7418206 Z13.220 Fasting lipids for baseline ordered Diabetes m ellitus screening 066291256 Z13.1 A1c screening ordered Long-term drug therapy 774818839 Z79.891 Routine CMP and B12 ordered Restless l egs syndrome 44390265 G25.81 Patient reports restless leg syndrome. She does have a hx of sleep study confirmed. no apnea. Screening iron studies as well a magnesium ordered and trial of Requip 0.5 mg 1-2 tablets p.o. q.h.s. Chronic insomnia 3708540 04 F51.04 We will see if the Requip helps with her insomnia which may be directly related to restless leg syndrome. Night sweats 27196487 R6 1 On review of systems today patient reports that she does have night sweats that have been present for several weeks. We will check baseline CBC, thyroid function testing, FSH, LH, estrogen and progestero ne and a baseline chest x-ray to further evaluate History of hysterectomy 743079205 Z90.711 2012. ovaries remain. Right lowe r quadrant pain 608411294 R10.31 Right lower quadrant pain noted on examinatio n today. No rebound or guarding but patient does have her appendix and adnexa present. Send for CT scan abdomen and pelvis with contrast, in light of night sweats we want to make sure that the appendix is not a smoldering type situation. Positive s creening for depression on PHQ-9 (Patient Health Questionnaire 9) [id number] 18444 Z13.31 Patient scored a 7 on screening today. There are no acute questions or concerns related to any anxiety or depression but more of a fatigue situation due to sleep disorder. Health Concerns Section Related Observation LastModified by Organization Detai ls LastModified Time None Recorded Concern Status LastModified by Organization Details LastModified Time None Recorded Advance Directives Directive N: Payers Insurance Date Sequence Insurance Name Policy Number Policy Barrera Covered Member ID Barrera Member ID Guarantor Name 07/21/2024 1 [facility] - DOS ON OR AFTER 21 (MEDICAID REPLACEMENT - HMO) Xin Rodas [id number] Xin Rodas 06/30/2024 1 [facility] (PPO) [id number] Xin Rodas [id number] Xin Rodas Notes Date Note Type Note Provider Name and Address Organization Details Recorded Time 06/30/2024 text/html Patient is here to establish with new healthcare provider. She reports she does have chronic insomnia. She also reports restless leg syndrome. She is interested in up-to-date labs. KEYON Mclaughlin Attn: Accounting,[address] [place], [address], [facility] 07/18/2024 22:02:34 OBGyn Episode No OBEpisode recorded.
--- OUTSIDE RECORDS SUMMARY | 2025-06-15 06:41 | XMS_ITS | Clinical Summary ---
Author Organization [facility] Address [address] [place] [address] Care Team Providers Care Superintendent Marine Name Role Phone Vern Smith MD Primary Care Provider Source Comments [facility],non-owned Affiliates and Associated Physician Practices is amultiple site organization consisting of ambulatory clinics and hospital sitesin [place], [place], [place] and [place]. This disclosure is being madepursuant to the Care Everywhere program and may not contain all information available regarding this patient. Last updated 18.[facility] Allergies Active Allergy Reactions Criticality Noted Date Comments Penicillins Rash Medium 04/07/2017 Sulfa Drugs Rash Medium 04/07/2017 Medications * Be aware that medications may not be up to date on this document. Alwaysverify current medications with the patient. AMITRIPTYLINE HCL PO Active Active Problems No known active problems Social History Tobacco Use Types Packs/Day Years Used Date Smoking Tobacco: Never Smokeless Tobacco: Never Comments Unknown Sex and Gender Information Value Date Recorded Sex Assigned at Not on file Legal Sex Female 2:11 PM CDT Gender Identity Not on file Sexual Orientation Not on file Last Filed Vital Signs Vital Sign Reading Time Taken Comments Blood Pressure 108/62 04/07/2017 2:17 PM CDT Pulse 91 04/07/2017 2:17 PM CDT Temperature 37.3 C (99.1 F) 04/07/2017 2:17 PM CDT Respiratory Rate 18 04/07/2017 2:17 PM CDT Oxygen Saturation 98% 04/07/2017 2:17 PM CDT Inhaled Oxygen Concentration - - Weight 68 kg (150 lb) 04/07/2017 2:17 PM CDT Height 165.1 cm (5' 5) 04/07/2017 2:17 PM CDT Body Mass Index 24.96 04/07/2017 2:17 PM CDT Plan of Treatment Health Maintenance Due Date Last Done Comments HIV SCREENING 2005 HEPATITIS C SCREENING 02/08/2008 DTAP/TDAP/TD VACCINES (1 - Tdap) 2009 HEPATITIS B VACCINE (1 of 3 - 19+ 3-dose series) 2009 PAP SMEAR 2011 HPV VACCINE (1 - 3-dose SCDM series) 2017 Cervical Cancer Screening 02/13/2020 PAP with HPV 02/13/2020 DEPRESSION SCREENING 07/23/2024 COVID-19 VACCINE (1 - 2024-2 6 season) 2025 INFLUENZA VACCINE (#1) 2025 ZOSTER VACCINE (1 of 2) 02/13/2040 HIB VACCINE Aged Out No longer eligi ble based on patient's age to complete this topic MENINGOCOCCAL (Group B) VACC INE SHARED DECISION-MAKING Aged Out No longer eligibl e based on patient's age to complete this topic MENINGOCOCCAL GROUPS A/C/Y/W VACCINE Aged Out No longer eligible b ased on patient's age to complete this topic PNEUMOCOCCAL VACCINE Aged Out No long er eligible based on patient's age to complete this topic Insurance ANTH Care Teams Superintendent Marine Relationship Specialty Start Date End Date Vern Smith MD PCP - General Family Medicine 04/07/17
--- OUTSIDE RECORDS SUMMARY | 2025-06-15 06:41 | XMS_ITS | Clinical Summary ---
Author Organization [facility] Address [address] [place] [id number] Care Team Providers Care Document Design Specialist Name Role Phone Unavailable Primary Care Provider Unavailabl e Allergies Active Allergy Reactions Criticality Noted Date Comments Amoxicillin Amoxicillin Unknown 10/30/2018 Penicillin V Potassium Unknown 10/30/2018 Penicillins Sulfa (Sulfonamide Antibiotics) Sulfa (Sulfonamide Antibiotics) Unknown 10/21 Tramadol Hcl Unknown 10/30/2018 Medications amitriptyline (ELAVIL) 75 mg tablet 75 mg daily Active clonazePAM (KlonoPIN) 0.5 mg disintegrating tablet Take 0.5 mg by mouth 2 (two) times a day as needed for seizures Active sertraline (ZOLOFT) 50 mg tablet TAKE 1 TABLET BY MOUTH EVERY DAY 30 tablet 9 Active Surgical History Surgery Date Site/Laterality Comments OVARIAN CYST REMOVAL TUBAL LIGATION CERVICAL BIOPSY W/ LOOP ELECTRODE EXCISION DILATION AND CURETTAGE OF UTERUS HYSTERECTOMY Medical History Medical History Date Comments Cancer (HCC) Restless leg syndrome Ovarian cyst Family History Medical History Relation Name Comments Diabetes Father Diabetes Paternal Grandmother Relation Name Status Comments Father Alive Maternal Grandfather Maternal Grandmother Mother Alive Paternal Grandfather Paternal Grandmother Alive Social History Tobacco Use Types Packs/Day Years Used Date Smoking Tobacco: Never Smokeless Tobacco: Never Alcohol Use Standard Drinks/Week Comments Yes 0 (1 standard drink = 0.6 oz pur e alcohol) SOCIALLY Personal Safety Answer Date Recorded Getting School Help Needed Not on file 09/05 Comments Unknown Sex and Gender Information Value Date Recorded Sex Assigned at Not on file 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
[2025-06-15 18:43] LABS: Hematocrit 44.6 % (37.0-47.0); Hemoglobin 14.7 g/dL (12.0-15.0); Mean Corpuscular HGB Conc 33.0 g/dl (32-36); Mean Corpuscular Hemoglobin 29.1 pg (26-34); Mean Corpuscular Volume 88.1 fl (80-100); Platelet Count Result 288 k/mm3 (150-375); Red Blood Count 5.06 M/mm3 (4.2-5.4); White Blood Count 5.1 K/mm3 (4.5-10.0)
[2025-06-15 18:57] LABS: Alanine Aminotransferase 16 U/L (6-35); Albumin Level 4.1 g/dL (3.5-5.1); Alkaline Phosphatase 69 U/L (38-126); Anion Gap 5 mmol/L (4-12); Aspartate Amino Transferase 64 U/L (14-36); Bilirubin,Total 0.5 mg/dL (0.2-1.3); Blood Urea Nitrogen 16 mg/dL (7-17); Calcium 8.8 mg/dL (8.4-10.2); Carbon Dioxide 26 mmol/L (22-30); Chloride 105 mmol/L (98-107); Cholesterol 168 mg/dL (0-200); Estimated Glomerular Filt Rate > 60; Glucose 93 mg/dL (65-110); Hemoglobin A1C 5.8 % (<5.7); Sodium 136 mmol/L (137-145); Total Protein 7.1 g/dL (6.3-8.2); Triglycerides 43 mg/dL (<150)
[2025-06-15 19:12] LABS: Free T4 Free Thyroxine 1.11 ng/dL (0.78-2.19); HDL Direct 53 mg/dL; Potassium 4.3 mmol/L (3.4-5.0)
[2025-06-15 19:34] LABS: Thyroid Stimulating Hormone 1.270 uIU/mL (0.465-4.680)
== END 2025-06-15 06:37 | disposition home or self-care (01) ==
PROVIDERS: PCP Nurse Practitioner Adult Health; Visit Provider Nurse Practitioner Adult Health
DX: D64.9 Anemia, unspecified (principal); R53.83 Other fatigue; R35.0 Frequency of micturition; K21.9 Gastro-esophageal reflux disease without esophagitis; E66.3 Overweight; Z68.29 Body mass index [BMI] 29.0-29.9, adult
CPT/HCPCS: 36415; 80053; 80061; 83036; 84439; 84443; 85027

== ENCOUNTER 2025-07-14 09:52 | Outpatient (CLI) | payer BC, SELFPAY ==
--- NOTE | ~2025-07-14 | CT_ITS ---
EXAMINATION:CT diagnostic chest wo con DATE: 07/14/2025 10:46 INDICATION: Dyspnea, unspecified. TECHNIQUE: Computed tomography (CT) of the chest was performed without intravenous contrast. Automated exposure control and iterative reconstruction technique were employed. The dose-length product (DLP) was 145.69 mGy-cm. COMPARISON: CT abdomen and pelvis 06/30/2024 FINDINGS: A calcified left lung nodule is consistent with old granulomatous disease. There is no pneumonia or pleural effusion. The heart size is normal. No pericardial effusion. There is mild thoracic spondylosis. IMPRESSION: 1. No etiology for the patient's symptoms. Reviewed, dictated and finalized at location [facility]
--- OUTSIDE RECORDS SUMMARY | 2025-07-14 10:21 | XMS_ITS | Data Portability ---
Author Organization Jaime FLORES Address [address] [place] [address] Care Team Providers Care Lye Peel Operator Name Role Phone REBECCAEMANUEL NETTA Primary Care Provider Unavailab le Assessment No assessment recorded. Plan of Treatment Reminders Order Date Submit Date Provider Last Modified By Organization Details Last Modified Time Details Appointments None recorded. Lab ferritin, serum or plasma 2023 024 FABIAN BERNSTEIN, [facility], [facility] [address], [place], [address], 4 07:09:24 magnesium, serum or plasma 2023 024 FABIAN BERNSTEIN, Jessica [facility], [address], [place], [address], 4 07:09:22 iron + total iron-bindin g capacity (TIBC), serum 2023 024 FBAIAN BERNSTEIN, [address] [place] [address], [address], [place], [address], 4 07:09:20 CMP, serum or plasma 2023 024 Jessica VALDEZ [facility], [address], [place], [address], 4 07:09:18 cobalamin and folate panel, serum 2023 024 FABIAN BERNSTEIN Jessica Verma, [address], [place], [address], 4 07:09:19 lipid panel, serum 2023 024 FABIAN ENGLANDRP, Jessica Verma, [address], [place], [address], 4 07:09:16 CBC w/ auto diff 2023 024 FABIAN NEGLANDRP, Jessica Verma, [address], [place], [address], 4 07:09:25 TSH + free T4, serum 2023 024 FABIAN BERNSTEIN, Jessica Verma, [address], [place], [address], 4 07:09:17 lh + FSH, serum 2023 024 FABIAN BERNSTEIN, Jessica Verma, [address], [place], [address], 4 07:09:26 estradiol, serum 2023 024 FABIAN BERNSTEIN, Jessica Verma, [address], [place], [address], 4 07:09:23 progesteron e, serum 2023 024 FABIAN BERNSTEIN, Jessica Verma, [address], [place], [address], 4 07:09:22 HbA1c (hemoglobin A1c), blood 2023 024 FABIAN BERNSTEIN, Jessica Verma, [address], [place], [address], 07:09:21 Referral None recorded. Procedures None recorded. Surgeries None recorded. Imaging CT, abdomen + pelvis, w/ contrast - Hold and call 2023 024 [facility] (Imaging), [address] [place] [address], [address], 15:34:14 XR, chest, 2 view [address] (Imaging), [address] [place] [address] [address], [place], [address], 11:08:51 Medication Orders ropinirole 0.5 mg tablet 2023 024 [facility] #[id number], [address], [place], [address], 12:49:58 Patient TargetsNo targets recorded. Patient Instructions Encounter Date Encounter Id Patient Instructions Last Modified By Organization Details Last Modified Time 06/30/2024 [id number] A healthy lifestyle: care instructions [email or web address] Not available 06/30/2024 12:49:55 Reason for Referral None Reported. Results Created Date Observation Date Name Description Value Unit Range Abnormal Flag Note LastModifiedBy Organization Detail LastModifiedTime 07/02/2007/03/2024 LIPID PANEL W/ CHOL/ HDL RATIO cholesterol, total 177 mg/dL 100-19 9 Not Available [facility] ([facility]) [address] [facility], [place], [address], 07/03/2024 07:09:16 07/02/20 24 07/03/2024 LIPID PANEL W/ CHOL/ HDL RATIO triglyceride s 52 mg/dL 0-149 Not Available [facility] ([facility]) [address] [facility], [place], [address], 07/03/2024 07:09:16 07/02/20 24 07/03/2024 LIPID PANEL W/ CHOL/ HDL RATIO HDL cholesterol 55 mg/dL >39 Not Available [facility]) [address] [place], [address], 07/03/2024 07:09:16 07/02/20 24 07/03/2024 LIPID PANEL W/ CHOL/ HDL RATIO VLDL cholesterol daniel 10 mg/dL 5-40 Not Available [facility] ([facility]) [address] [facility] [place] [place], [address], 07/03/2024 07:09:16 07/02/20 24 07/03/2024 LIPID PANEL W/ CHOL/ HDL RATIO LDL chol calc ([facility]) 112 mg/dL 0-99 above high normal Not Available [facility] ([facility]) [address] [place], [address], 07/03/2024 07:09:16 07/02/20 24 07/03/2024 LIPID PANEL W/ CHOL/ HDL RATIO T. chol/HDL ratio 3.2 ratio 0.0-4. 4 T. Chol/ HDL Ratio Men Women 1/2 Avg.R isk 3.4 3.3 Avg.R isk 5.0 4.4 2X Avg.R isk 9.6 7.1 3X Avg.R isk 23.4 11.0 Not Available [facility] ([facility]) [address] [place], [address], 07/03/2024 07:09:16 07/02/20 24 07/03/2024 TSH+F REE T4 TSH 1.460 uIU/m L 0.450- 4.500 Not Available [facility] ([facility]) [address] [place], [address], 07/03/2024 07:09:17 07/02/20 24 07/03/2024 TSH+F REE T4 T4,free(dire ct) 1.09 NG/dL 0.82-1 .77 Not Available [facility] ([facility]) [address] [place], [address], 07/03/2024 07:09:17 07/02/20 24 07/03/2024 COMP. METAB OLIC PANEL (14) glucose 98 mg/dL 70-99 Not Available [facility] ([facility]) [address] [place], [address], 07/03/2024 07:09:18 07/02/20 24 07/03/2024 COMP. METAB OLIC PANEL (14) BUN 18 mg/dL 6-20 Not Available [facility] ([facility]) [address] [facility], [place], [address], 07/03/2024 07:09:18 07/02/20 24 07/03/2024 COMP. METAB OLIC PANEL (14) creatinine 0.86 mg/dL 0.57-1 .00 Not Available [facility] ([facility]) [address] [place], [address], 07/03/2024 07:09:18 07/02/20 24 07/03/2024 COMP. METAB OLIC PANEL (14) eGFR 91 mL/mi n/1.7 3 >59 Not Available [facility] ([facility]) [address] [place], [address], 07/03/2024 07:09:18 07/02/20 24 07/03/2024 COMP. METAB OLIC PANEL (14) BUN/creatini ne ratio 21 9-23 Not Available [facility] ([facility]) [address] [place], [address], 07/03/2024 07:09:18 07/02/20 24 07/03/2024 COMP. METAB OLIC PANEL (14) sodium 139 mmol/ L 134-14 4 Not Available [facility] ([facility]) [address] [place], [address], 07/03/2024 07:09:18 07/02/20 24 07/03/2024 COMP. METAB OLIC PANEL (14) potassium 4.7 mmol/ L 3.5-5. 2 Not Available [facility] ([facility]) [address] [place], [address], 07/03/2024 07:09:18 07/02/20 24 07/03/2024 COMP. METAB OLIC PANEL (14) chloride 104 mmol/ L 96-106 Not Available [facility] ([facility]) [address] [place], [address], 07/03/2024 07:09:18 07/02/20 24 07/03/2024 COMP. METAB OLIC PANEL (14) carbon dioxide, total 24 mmol/ L 20-29 Not Available [facility] ([facility]) [address] [place], [address], 07/03/2024 07:09:18 07/02/20 24 07/03/2024 COMP. METAB OLIC PANEL (14) calcium 9.2 mg/dL 8.7-10 .2 Not Available [facility] ([facility]) [address] [place], [address], 07/03/2024 07:09:18 07/02/20 24 07/03/2024 COMP. METAB OLIC PANEL (14) protein, total 6.4 g/dL 6.0-8. 5 Not Available [facility] ([facility]) [address] [place], [address], 07/03/2024 07:09:18 07/02/20 24 07/03/2024 COMP. METAB OLIC PANEL (14) albumin 4.2 g/dL 3.9-4. 9 Not Available [facility] ([facility]) [address] [place], [address], 07/03/2024 07:09:18 07/02/20 24 07/03/2024 COMP. METAB OLIC PANEL (14) globulin, total 2.2 g/dL 1.5-4. 5 Not Available [facility] ([facility]) [address] [place], [address], 07/03/2024 07:09:18 07/02/20 24 07/03/2024 COMP. METAB OLIC PANEL (14) bilirubin, total 0.3 mg/dL 0.0-1. 2 Not Available [facility] ([facility]) [address] [place], [address], 07/03/2024 07:09:18 07/02/20 24 07/03/2024 COMP. METAB OLIC PANEL (14) alkaline phosphatase 76 IU/L 44-121 Not Available [facility]) [address] [place], [address], 07/03/2024 07:09:18 07/02/20 24 07/03/2024 COMP. METAB OLIC PANEL (14) AST (SGOT) 17 IU/L 0-40 Not Available [facility] ([facility]) [address] [facility] [place], [address], 07/03/2024 07:09:18 07/02/20 24 07/03/2024 COMP. METAB OLIC PANEL (14) ALT (SGPT) 13 IU/L 0-32 Not Available [facility] ([facility]) [address] [facility] [place], [address], 07/03/2024 07:09:18 07/02/20 24 07/03/2024 VITAM IN B12 AND FOLAT E vitamin B12 413 pg/mL 232-12 45 Not Available [facility] ([facility]) [address] [facility] [place], [address], 07/03/2024 07:09:19 07/02/20 24 07/03/2024 VITAM IN B12 AND FOLAT E folate (folic acid), serum 9.1 NG/mL >3.0 A serum folat e kathryn ntrat ion of less than 3.1 ng/mL is consi dered to repre sent clini daniel defic iency . Not Available [facility] ([facility]) [address] [place], [address], 07/03/2024 07:09:19 07/02/20 24 07/03/2024 IRON AND TIBC iron bind.cap.(TI BC) 344 ug/dL 250-45 0 Not Available [facility] ([facility]) [address] [place], [address], 07/03/2024 07:09:20 07/02/20 24 07/03/2024 IRON AND TIBC UIBC 283 ug/dL 131-42 5 Not Available [facility] ([facility]) [address] [place], [address], 07/03/2024 07:09:20 07/02/20 24 07/03/2024 IRON AND TIBC iron 61 ug/dL 27-159 Not Available [facility] ([facility]) [address] [facility], [place], [address], 07/03/2024 07:09:20 07/02/20 24 07/03/2024 IRON AND TIBC iron saturation 18 % 15-55 Not Available [facility] ([facility]) [address] [place], [address], 07/03/2024 07:09:20 07/02/20 24 07/03/2024 HEMOG LOBIN A1C hemoglobin A1C 5.4 % 4.8-5. 6 Predi abete s: 5.7 - 6.4 Diabe ehsan: >6.4 Glyce xenia contr ol for adult s with diabe ehsan: <7.0 Not Available [facility] ([facility]) [address] [place], [address], 07/03/2024 07:09:21 07/02/20 24 07/03/2024 MAGNE SIUM magnesium 1.9 mg/dL 1.6-2. 3 Not Available [facility] ([facility]) [address] [place], [address], 07/03/2024 07:09:21 07/02/20 24 07/03/2024 PROGE STERO NE progesterone 0.2 NG/mL Folli cular phase 0.1 - 0.9 Lutea l phase 1.8 - 23.9 Ovula tion phase 0.1 - 12.0 Pregn ant First trime ster 11.0 - 44.3 Secon d trime ster 25.4 - 83.3 Third trime ster 58.7 - 214.0 Postm enopa usal 0.0 - 0.1 Not Available [facility] ([facility]) [address] [place], [address], 07/03/2024 07:09:22 07/02/20 24 07/03/2024 ESTRA DIOL estradiol 91.9 pg/mL Adult Femal e Range Folli cular phase 12.5 - 166.0 Ovula tion phase 85.8 - 498.0 Lutea l phase 43.8 - 211.0 Postm enopa usal <6.0 - 54.7 Pregn phan 1st trime ster 215.0 - >4300 .0 Anibal ECLIA metho dolog y Not Available [facility] ([facility]) [address] [place], [address], 07/03/2024 07:09:23 07/02/20 24 07/03/2024 SRAVANI TIN ferritin 99 NG/mL 15-150 Not Available [facility] ([facility]) [address] [place], [address], 07/03/2024 07:09:24 07/02/20 24 07/02/2024 CBC WITH DIFFE RENTI AL/PL ATELE T WBC 5.1 x10e3 /uL 3.4-10 .8 Not Available [facility] ([facility]) [address] [place], [address], 07/03/2024 07:09:25 07/02/20 24 07/02/2024 CBC WITH DIFFE RENTI AL/PL ATELE T RBC 5.00 x10e6 /uL 3.77-5 .28 Not Available [facility] ([facility]) [address] [facility], [place], [address], 07/03/2024 07:09:25 07/02/20 24 07/02/2024 CBC WITH DIFFE RENTI AL/PL ATELE T hemoglobin 14.3 g/dL 11.1-1 5.9 Not Available [facility] ([facility]) [address] [facility], [place], [address], 07/03/2024 07:09:25 07/02/20 24 07/02/2024 CBC WITH DIFFE RENTI AL/PL ATELE T hematocrit 43.4 % 34.0-4 6.6 Not Available [facility] ([facility]) [address] [facility], [place], [address], 07/03/2024 07:09:25 07/02/20 24 07/02/2024 CBC WITH DIFFE RENTI AL/PL ATELE T MCV 87 fL 79-97 Not Available [facility] ([facility]) [address] [facility], [place], [address], 07/03/2024 07:09:25 07/02/20 24 07/02/2024 CBC WITH DIFFE RENTI AL/PL ATELE T MCH 28.6 pg 26.6-3 3.0 Not Available [facility] ([facility]) [address] [facility], [place], [address], 07/03/2024 07:09:25 07/02/20 24 07/02/2024 CBC WITH DIFFE RENTI AL/PL ATELE T MCHC 32.9 g/dL 31.5-3 5.7 Not Available [facility] ([facility]) [address] [facility], [place], [address], 07/03/2024 07:09:25 07/02/20 24 07/02/2024 CBC WITH DIFFE RENTI AL/PL ATELE T RDW 12.5 % 11.7-1 5.4 Not Available [facility] ([facility]) [address] [facility], [place], [address], 07/03/2024 07:09:25 07/02/20 24 07/02/2024 CBC WITH DIFFE RENTI AL/PL ATELE T platelets 272 x10e3 /uL 150-45 0 Not Available [facility] ([facility]) [address] [facility], [place], [address], 07/03/2024 07:09:25 07/02/20 24 07/02/2024 CBC WITH DIFFE RENTI AL/PL ATELE T neutrophils 62 % notest ab. Not Available [facility] ([facility]) [address] [facility], [place], [address], 07/03/2024 07:09:25 07/02/20 24 07/02/2024 CBC WITH DIFFE RENTI AL/PL ATELE T lymphs 27 % notest ab. Not Available [facility] ([facility]) [address] [facility], [place], [address], 07/03/2024 07:09:25 07/02/20 24 07/02/2024 CBC WITH DIFFE RENTI AL/PL ATELE T monocytes 7 % notest ab. Not Available [facility] ([facility]) [address] [facility], [place], [address], 07/03/2024 07:09:25 07/02/20 24 07/02/2024 CBC WITH DIFFE RENTI AL/PL ATELE T eos 3 % notest ab. Not Available [facility] ([facility]) [address] [facility], [place], [address], 07/03/2024 07:09:25 07/02/20 24 07/02/2024 CBC WITH DIFFE RENTI AL/PL ATELE T basos 1 % notest ab. Not Available [facility] ([facility]) [address] [facility], [place], [address], 07/03/2024 07:09:25 07/02/20 24 07/02/2024 CBC WITH DIFFE RENTI AL/PL ATELE T neutrophils (absolute) 3.2 x10e3 /uL 1.4-7. 0 Not Available [facility] ([facility]) [address] [facility], [place], [address], 07/03/2024 07:09:25 07/02/20 24 07/02/2024 CBC WITH DIFFE RENTI AL/PL ATELE T lymphs (absolute) 1.4 x10e3 /uL 0.7-3. 1 Not Available [facility] ([facility]) [address] [facility], [place], [address], 07/03/2024 07:09:25 07/02/20 24 07/02/2024 CBC WITH DIFFE RENTI AL/PL ATELE T monocytes(ab solute) 0.3 x10e3 /uL 0.1-0. 9 Not Available [facility] ([facility]) [address] [facility], [place], [address], 07/03/2024 07:09:25 07/02/20 24 07/02/2024 CBC WITH DIFFE RENTI AL/PL ATELE T eos (absolute) 0.1 x10e3 /uL 0.0-0. 4 Not Available [facility] ([facility]) [address] [place], [address], 07/03/2024 07:09:25 07/02/20 24 07/02/2024 CBC WITH DIFFE RENTI AL/PL ATELE T baso (absolute) 0.1 x10e3 /uL 0.0-0. 2 Not Available [facility] ([facility]) [address] [facility], [place], [address], 07/03/2024 07:09:25 07/02/20 24 07/02/2024 CBC WITH DIFFE RENTI AL/PL ATELE T immature granulocytes 0 % notest ab. Not Available [facility] ([facility]) [address] [facility], [place], [address], 07/03/2024 07:09:25 07/02/20 24 07/02/2024 CBC WITH DIFFE RENTI AL/PL ATELE T immature grans (abs) 0.0 x10e3 /uL 0.0-0. 1 Not Available [facility] ([facility]) [address] [facility], [place], [address], 07/03/2024 07:09:25 07/02/20 24 07/03/2024 FSH AND LH LH 5.9 mIU/m L Adult Femal e Range Folli cular phase 2.4 - 12.6 Ovula tion phase 14.0 - 95.6 Lutea l phase 1.0 - 11.4 Postm enopa usal 7.7 - 58.5 Not Available [facility] ([facility]) [address] [facility], [place], [address], 07/03/2024 07:09:26 07/02/20 24 07/03/2024 FSH AND LH FSH 4.1 mIU/m L Adult Femal e Range Folli cular phase 3.5 - 12.5 Ovula tion phase 4.7 - 21.5 Lutea l phase 1.7 - 7.7 Postm enopa usal 25.8 - 134.8 Not Available [facility] ([facility]) [address] [facility], [place], [address], 07/03/2024 07:09:26 06/30/20 24 06/30/2024 CT, abdom en + pelvi s, w/ contr ast No observ ation record ed. [place] [address], [place], [address], 06/30/2024 16:37:03 06/30/20 24 06/30/2024 XR, chest , 2 view No observ ation record ed. [address], [place], [address], 06/30/2024 16:37:03 07/31/19 25 07/31/2024 US, pelvi s, trans abdom inal + trans vagin al No observ ation record ed. [facility] [address], [place], [address], 08/04/2024 15:15:23 Result Notes None recorded. Problems Name Problem SNOMED Code Status Onset Date Resolution Date Notes Provider Name and Address Organization Details Recorded Time Body mass index 25-29 - overweight 445848225 Active 2023 Alex Holly MA null, [place] - [facility] 4 12:06:53 History of hysterectom y 848323457 Active 2023 KEYON Mclaughlin Attn: Accountin g,[address] [facility], [place], [address], [place] [facility] 4 12:27:54 Overweight 795822294 Active 2023 KEYON Mclaughlin Attn: Accountin g,[address] [facility], [place], [address], [place] [facility] 4 21:58:56 Restless legs syndrome 00063465 Active 2023 KEYON Mclaughlin Attn: Accountin g,[address] [facility], [place], [address], [place] [facility] 4 21:59:01 Chronic insomnia 906698751 Active 2023 KEOYN Mclaughlin Attn: Accountin g,[address] [facility], [place], [address], [place] [facility] 4 21:59:03 Long-term drug therapy Active 2023 KEYON Mclaughlin Attn: Accountin g,[address] [facility], [place], [address], [place] - [facility] 4 21:59:06 Positive screening for depression on PHQ-9 (Patient Health Questionnai re 9) [id number] 00 Active 2023 KEYON Mclaughlin Attn: Rhonda webb,[address] [facility], [place], [address], [facility] 22:02:25 Problem Notes None recorded. Procedures Surgical History Date Name Laterality Status Provider Name and Address Organization Details Recorded Time Arthroscopic Surgery completed Alex Holly MA [facility] 06/30/2024 12:43:26 Knee Surgery completed Alex Holly MA [facility] 06/30/2024 12:43:31 LEEP completed Alex Holly MA [facility] 06/30/2024 12:43:40 hysterectomy completed Alex Holly MA [facility] 06/30/2024 12:43:47 excision of bilateral fallopian tubes and ovaries completed Alex Holly MA [facility] 06/30/2024 12:43:53 Imaging Results None recorded. Procedure Notes None recorded. Medical Equipment None Reported. Allergies Allergen ID Allergen Name Allergen Category Reaction Reaction Severity Criticality Documentation Date Start Date Code Code System Note Provider Name and Address Organization Details Recorded Time 988934 amoxicill in medicatio n Not available Not available Not available 06/30/2024 723 RxNorm GARETH Morrissey [facility] 12:05:20 319482 Product containin g penicilli n (product) medicatio n Not available Not available Not available 06/30/2024 14439 8001 [facility] 12:42:51 225964 Substance with sulfonami de structure and antibacte rial mechanism of action (substanc e) medicatio n Not available Not available Not available 06/30/2024 01058 8003 [facility]ED [facility] 12:42:57 630492 tramadol medicatio n Not available Not available Not available 06/30/2024 16920 RxNorm GARETH Morrissey [facility] 12:43:04 Medications Name Sig Start Date Stop [...] 06/30/2024 130/80 mm[Hg] KEYON Mclaughlin Attn: Accounting,[address] [place], [address], [facility] 06/30/2024 12:49:37 Date Recorded Body weight Respiratory rate Body mass index (BMI) Body height Oxygen saturation Heart rate Systolic And Diastolic Provider Name and Address Organization Details Last Updated DateTime 4 45652.9 3 g 18 /min 27.8 kg/m2 165.1 cm 99 % 77 /min 118/82 mm[Hg] Alex Holly [place] [facility] 4 12:08:42 Social History Question Answer Notes LastModified by Organizat ion Details LastModified Time Tobacco Smoking Status Former Smoker Alex Holly MA [facility], [place] - [facility] 06/30/2024 12:44:27 Do You Have [...] Skin Problems N Anemia N Heart Attack ([place]) N Diabetes N Anxiety Disorder Y Muscle, [...] ICD10 Code Diagnosis IMO Codes Diagnosis Note [id number] Markell Salas MD [facility]unj Montoya [address] [place] [address] 06/30/2024 11:39:12 06/30/2024 13:03:12 Body mass index 25-29 - overweight 263945644 Z68.27 BMI is 27.8 Overweight 584401694 E66 .3 discussed healthy diet, exercise, controllin g carbohydra ehsan and added sugars in the diet Cholesterol screening 27 7044620 Z13.220 Fasting lipids for baseline ordered Diabetes m ellitus screening 431002899 Z13.1 A1c screening ordered Long-term drug therapy 839661803 Z79.891 Routine CMP and B12 ordered Restless l egs syndrome 46386460 G25.81 Patient reports restless leg syndrome. She does have a hx of sleep study confirmed. no apnea. Screening iron studies as well a magnesium ordered and trial of Requip 0.5 mg 1-2 tablets p.o. q.h.s. Chronic insomnia 1339629 04 F51.04 We will see if the Requip helps with her insomnia which may be directly related to restless leg syndrome. Night sweats 62285236 R6 1 On review of systems today patient reports that she does have night sweats that have been present for several weeks. We will check baseline CBC, thyroid function testing, FSH, LH, estrogen and progestero ne and a baseline chest x-ray to further evaluate History of hysterectomy 710716282 Z90.711 2012. ovaries remain. Right lowe r quadrant pain 844940258 R10.31 Right lower quadrant pain noted on examinatio n today. No rebound or guarding but patient does have her appendix and adnexa present. Send for CT scan abdomen and pelvis with contrast, in light of night sweats we want to make sure that the appendix is not a smoldering type situation. Positive s creening for depression on PHQ-9 (Patient Health Questionnaire 9) [id number] 40850 Z13.31 Patient scored a 7 on screening [...] Barrera Member ID Guarantor Name 07/21/2024 1 [facility] - DOS ON OR AFTER 21 (MEDICAID REPLACEMENT - HMO) Xin Rodas [id number] Xin Rodas 06/30/2024 1 [facility] (PPO) [id number] Xin Rodas [id number] Xin Rodas Notes Date Note Type Note Provider Name and Address Organization Details Recorded Time 06/30/2024 text/html Patient is here to establish with new healthcare provider. She reports she does have chronic insomnia. She also reports restless leg syndrome. She is interested in up-to-date labs. KEYON Mclaughlin Attn: Accounting,[address] [place], [address], [facility] 07/18/2024 22:02:34 OBGyn Episode No OBEpisode recorded.
--- OUTSIDE RECORDS SUMMARY | 2025-07-14 10:21 | XMS_ITS | Clinical Summary ---
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
--- OUTSIDE RECORDS SUMMARY | 2025-07-14 10:21 | XMS_ITS | Clinical Summary ---
Author Organization [facility] Address [address] [place] [id number] Care Team Providers Care Weapons And Tactics Instructor Name Role Phone Unavailable Primary Care Provider [...]
--- OUTSIDE RECORDS SUMMARY | 2025-07-14 10:21 | XMS_ITS | Clinical Summary ---
Author Organization [facility] Address [address] [place] [address] Care Team Providers Care Rn Progressive Care Name Role Phone Vern Smith MD Primary Care Provider [phone] Source Comments [facility],non-owned Affiliates and Associated Physician Practices is amultiple site organization consisting of ambulatory clinics and hospital sitesin [place], [place], [place] and [place]. This disclosure is being madepursuant to the Care Everywhere program and may not contain all information available regarding this patient. Last updated 18.[facility] Allergies Active Allergy Reactions Criticality Noted Date [...] 3 - 19+ 3-dose series) 2009 HPV VACCINE (1 - 3-dose SCDM series) 2017 DEPRESSION SCREENING 07/23/2024 COVID-19 VACCINE (1 - [...] patient's age to complete this topic Insurance ANTHEM Care Teams Rn Progressive Care Relationship Specialty Start Date End Date Vern Smith MD PCP - General Family Medicine 04/07/17
--- NOTE | 2025-07-14 11:37 | WPDPFTINT ---
PFT Procedure Performed PFT Procedure Performed Plethysmography (Lung Vol) Diffusing Cap (DLCO) Flow Vol Loop Spirometry w/o Bronchodil PFT Interpretation This is a pulmonary function test with spirometry, plethysmography and diffusing capacity. The test was performed and results interpreted in accordance with the 2019 and 2005 ATS/ERS Task Force guidelines respectively using the Global Lung Function Initiative-2012 reference equations. Patient demonstrated good effort and cooperation. Reproducibility criteria were met. The quality of the spirometry maneuver was Grade A. Findings: Spirometry: The contour of the expiratory flow tracing demonstrates there is mid expiratory plateau or knee pattern in 4 of 4 maneuvers. The contour the inspiratory flow tracing is normal. The FVC is 3.94 L, 104% predicted. The FEV1 is 3.13 L, 100% predicted. The FEV1: FVC ratio 79%. Plethysmography: The total lung capacity is 4.96 L, 98% predicted. The functional residual capacity is 2.01 L, 72% predicted. The residual volume is 1.01 L, 68% predicted. Diffusing capacity: The diffusing capacity unadjusted for hemoglobin and carboxyhemoglobin is 23.0, 94% predicted. The diffusing capacity adjusted for alveolar volume is 4.59, 95% predicted. Impression: There is a reproducible knee pattern of the expiratory flow tracing which can be a normal variant or pathologic and has been attributed to a choke point section of the bronchial tree. The normal variant is more common in younger female patients, decreases with age and is more pronounced in the post bronchodilator efforts. The pattern has also been described with kyphosis, kyphoscoliosis, central obstructing mass, and post lung transplantation. Clinical correlation is recommended. Otherwise, the spirometry is normal without evidence of an obstructive abnormality. The lung volumes are normal. The diffusing capacity is normal. There are no prior studies for comparison
== END 2025-07-14 09:53 | disposition home or self-care (01) ==
PROVIDERS: PCP Nurse Practitioner Adult Health; Visit Provider Nurse Practitioner Adult Health
DX: R06.00 Dyspnea, unspecified (principal); T78.40XA Allergy, unspecified, initial encounter; Z86.16 Personal history of COVID-19
CPT/HCPCS: 71250; 94375; 94726; 94729